=== PATIENT | male | born 2000 | race Caucasian/White ===

== ENCOUNTER 2020-11-10 19:30 | Emergency (ER) | payer SELFPAY ==
[2020-11-10] MEDS ORDERED: Famotidine/PF 20 mg/2ml Vial ONE (19:51)
[2020-11-10] MEDS ORDERED: methylPREDNISolone Sod Succ/PF 125 MG/2 ML VIAL ONE (19:51)
== END 2020-11-10 20:25 | disposition home or self-care (01) ==
LOC: NAV ERS 19:30
DX: T78.1XXA Other adverse food reactions, not elsewhere classified, initial encounter (principal); F17.290 Nicotine dependence, other tobacco product, uncomplicated
CPT/HCPCS: 96374; 96375; J2930; S0028